=== PATIENT | male | born 1970 | race African-American/Black ===

== ENCOUNTER 2019-03-20 08:01 | Emergency (ER) | payer OTHER ==
--- NOTE | 2019-03-20 08:14 | PDOC ---
History of Present Illness - General Chief Complaint: Injury Stated Complaint: RT HAND INJURY Time Seen by Provider: 03/20/19 08:12 History Source: Patient Exam Limitations: No Limitations Past History - Travel Traveled outside of the country in the last 30 days: No Close contact w/someone who was outside of country & ill: No - Past Medical History Allergies/Adverse Reactions: Allergies Allergy/AdvReac Type Severity Reaction Status Date / Time No Known Allergies Allergy Verified 03/20/19 08:13 Home Medications: Ambulatory Orders No Home Medications 0 dose .ROUTE UTDICT 05/13/12 Cancer: No Cardiac Disorders: No CVA: No Diabetes: (borderline) HTN: No - Suicide/Smoking/Psychosocial Hx Smoking Status: No Smoking History: Former smoker Number of Cigarettes Smoked Daily: 2 Hx Alcohol Use: No Drug/Substance Use Hx: No Review of Systems - Review of Systems Able to Perform ROS?: Yes Comments:: 03/20/19 08:13 CONSTITUTIONAL: Absent: fever, chills, diaphoresis, generalized weakness, malaise, loss of appetite HEENT: Absent: rhinorrhea, nasal congestion, throat pain, throat swelling, difficulty swallowing, mouth swelling, ear pain, eye pain, visual Changes CARDIOVASCULAR: Absent: chest pain, loss of consciousness, palpitations, irregular heart rate, peripheral edema RESPIRATORY: Absent: cough, shortness of breath, dyspnea with exertion, orthopnea, wheezing, stridor, hemoptysis GASTROINTESTINAL: Absent: abdominal pain, abdominal distension, nausea, vomiting, diarrhea, constipation, melena, hematochezia GENITOURINARY: Absent: dysuria, frequency, urgency, hesitancy, hematuria, flank pain, genital pain MUSCULOSKELETAL: Present: R hand pain Absent: myalgia, joint swelling SKIN: Absent: rash, itching, pallor HEMATOLOGIC/IMMUNOLOGIC: Absent: easy bleeding, easy bruising, lymphadenopathy, frequent infections ENDOCRINE: Absent: unexplained weight gain, unexplained weight loss, heat intolerance, cold intolerance NEUROLOGIC: Absent: headache, focal weakness or paresthesias, dizziness, unsteady gait, seizure, mental status changes, bladder or bowel incontinence PSYCHIATRIC: Absent: anxiety, depression, suicidal or homicidal ideation, hallucinations. Is the patient limited Turkish proficient: No *Physical Exam - Physical Exam Comments: 03/20/19 08:13 GENERAL: The patient is awake, alert, and fully oriented, in no acute distress. HEAD: Normal with no signs of trauma. EYES: Pupils equal, round and reactive to light, extraocular movements intact, sclera anicteric, conjunctiva clear. EXTREMITIES: TTP of the R 3rd knuckle with associated swelling. ROM intact of the R hand. Normal range of motion, no edema. NEUROLOGICAL: Normal speech, normal gait. PSYCH: Normal mood, normal affect. SKIN: Warm, Dry, normal turgor, no rashes or lesions noted. Medical Decision Making - Medical Decision Making 03/20/19 08:32 THe patient is a 48 y/o M with no medical history who presents with 2 weeks of R hand painthe patient states that he was walking his dog when he slipped in the rain and landed on his right hand. He states that since then the right third knuckle has been swollen feels like it is chipped. denies numbness and tingling to the hand, weakness to the extremity, fevers and chills.the patient is right-hand dominant. A/P: Right hand pain On exam the right third knuckle is swollen. No tenderness to palpation. Patient able to fully flex and extend the finger. X-ray obtained of the right hand. No fracture of the third knuckle noted on wet read. We will discharge home with orthopedic follow-up if symptoms do not improve. I discussed the physical exam findings, ancillary test results and final diagnoses with the patient. I answered all of the patient's questions. The patient was satisfied with the care received and felt comfortable with the discharge plan and treatment plan. The Patient agrees to follow up with the primary care physician/specialist within 24-72 hours. Return precautions were given. *DC/Admit/Observation/Transfer Diagnosis at time of Disposition: Hand pain, right - Discharge Dispostion Disposition: HOME Condition at time of disposition: Stable Decision to Admit order: No - Referrals Referrals: Livia Sandoval MD [Primary Care Provider] - Vignesh San MD [Staff Physician] - - Patient Instructions Printed Discharge Instructions: DI for Hand Pain Additional Instructions: You were evaluated for your hand pain today. Your x-ray showed no broken bones. You may apply heating packs to the area to help with the swelling. If your symptoms do not improve within 2-3 days please follow-up with orthopedics. A referral has been provided. Return to the ER for any new or worsening symptoms. - Post Discharge Activity
[2019-03-20 08:25] VITALS: BP 137/96; PULSE 86; TEMP 98; BMI 27.6
== END 2019-03-20 08:44 | disposition home or self-care (01) ==
LOC: JER 08:01 → JERFT 08:01
DX: M79.641 Pain in right hand (principal); W01.0XXA Fall on same level from slipping, tripping and stumbling without subsequent striking against object, initial encounter; Y93.K1 Activity, walking an animal; Y92.480 Sidewalk as the place of occurrence of the external cause; Y99.8 Other external cause status
CPT/HCPCS: 73130-TC-RT-FY; 99281-25

== ENCOUNTER 2019-10-15 10:50 | Emergency (ER) | payer OTHER ==
[2019-10-15 10:57] VITALS: BP 154/107; PULSE 106; TEMP 98.4; BMI 25.4
--- NOTE | 2019-10-15 11:52 | PDOC ---
History of Present Illness - General Chief Complaint: Respiratory Stated Complaint: Cold Symptoms Time Seen by Provider: 10/15/19 11:22 History Source: Patient Exam Limitations: No Limitations Past History - Past Medical History Allergies/Adverse Reactions: Allergies Allergy/AdvReac Type Severity Reaction Status Date / Time No Known Allergies Allergy Verified 10/15/19 10:56 Home Medications: Ambulatory Orders No Home Medications 0 dose .ROUTE UTDICT 05/13/12 Benzonatate 200 mg PO TID #21 capsule 10/15/19 Cancer: No Cardiac Disorders: No CVA: No COPD: No Diabetes: (borderline) HTN: No - Immunization History Immunization Up to Date: (unknown) - Psycho Social/Smoking Cessation Hx Smoking Status: No Smoking History: Current every day smoker Number of Cigarettes Smoked Daily: 2 Information on smoking cessation initiated: No Hx Alcohol Use: No Drug/Substance Use Hx: Yes ([facility]) *Physical Exam - Vital Signs Last Vital Signs Temp Pulse Resp BP Pulse Ox 98.4 F 106 H 18 154/107 H 99 10/15/19 10:53 10/15/19 10:53 10/15/19 10:53 10/15/19 10:53 10/15/19 10:53 - Physical Exam General Appearance: No: Apparent Distress Respiratory/Chest: positive: Lungs Clear, Normal Breath Sounds. negative: Respiratory Distress Cardiovascular: positive: Regular Rhythm, Regular Rate, S1, S2. negative: Murmur Gastrointestinal/Abdominal: positive: Normal Bowel Sounds, Soft. negative: Tender, Distended, Guarding, Rebound Integumentary: positive: Normal Color Neurologic: positive: Alert ED Treatment Course - RADIOLOGY Radiology Studies Ordered: Category Date Time Status CHEST PA & LAT [RAD] Stat Radiology 10/15/19 11:31 Completed Medical Decision Making - Medical Decision Making 49 y/o M with no sig pmh, nonsmoker, presents with cough x 1 week, occasionally productive along with congestion, rhinorrhea, sneeezing. Denies fever, sob, cp, abd pain, n/v/d. CXR negative Patient otherwise appears well, is afebrile stable for dc 10/15/19 11:47 Discharge - Discharge Information Problems reviewed: Yes Clinical Impression/Diagnosis: Viral syndrome Condition: Stable Disposition: HOME - Admission No - Additional Discharge Information Prescriptions: Benzonatate 200 mg PO TID #21 capsule Prescription Drug Monitoring Program (I-STOP) results: I-STOP not reviewed - Follow up/Referral - Patient Discharge Instructions Patient Printed Discharge Instructions: DI for Viral Syndrome Additional Instructions: Thank you for choosing [facility]. It was a pleasure taking care of you. Use medication as prescribed Follow-up with your doctor in 2 days Return to the Emergency Department if your symptoms worsen or persist or have other concerning symptoms. - Post Discharge Activity
== END 2019-10-15 11:55 | disposition home or self-care (01) ==
LOC: JERFT 10:50
DX: B34.9 Viral infection, unspecified (principal)
CPT/HCPCS: 71046-TC-FY; 99281-25

== ENCOUNTER 2020-01-04 18:17 | Emergency (ER) | payer OTHER ==
[2020-01-04 18:22] VITALS: BMI 26.6
[2020-01-04 18:28] VITALS: BP 160/108; PULSE 83; TEMP 98.1
[2020-01-04] MEDS ORDERED: FAMOTIDINE 20 MG/50 ML IVPB 50 ML IVPB ONE (18:33)
[2020-01-04] MEDS ORDERED: ONDANSETRON 4 MG/2 ML VIAL IVPUSH ONE (18:33)
[2020-01-04] MEDS ORDERED: SODIUM CHLORIDE 1,000 ML IV ONE (18:33)
[2020-01-04] MEDS ORDERED: ONDANSETRON *ODT* 4 MG TABLET SL ONE (18:35)
[2020-01-04] MEDS ORDERED: FAMOTIDINE 20 MG TABLET PO ONE (18:35)
[2020-01-04] MEDS ORDERED: MAG HYDROX/AL HYDROX/SIMETH 30 ML UNIT-DOSE CUP PO ONE (18:35)
[2020-01-04] MEDS ORDERED: ONDANSETRON *ODT* 4 MG TABLET ONE (18:47)
[2020-01-04] MEDS ORDERED: MAG HYDROX/AL HYDROX/SIMETH 30 ML UNIT-DOSE CUP ONE (18:51)
[2020-01-04] MEDS ORDERED: FAMOTIDINE 20 MG TABLET ONE (18:51)
[2020-01-04] MEDS ORDERED: HYOSCYAMINE SULFATE 0.125 MG *ODT PO ONE (19:27)
[2020-01-04] MEDS ORDERED: HYOSCYAMINE SULFATE 0.125 MG *ODT ONE (19:30)
--- NOTE | 2020-01-04 20:08 | PDOC ---
Documentation entered by Alexsandra Fitzgerald SCRIBE, acting as scribe for J Carlos Dang MD. J Carlos Dang MD: This documentation has been prepared by the Lia winters Torie, SCRIBE, under my direction and personally reviewed by me in its entirety. I confirm that the documentation accurately reflects all work, treatment, procedures, and medical decision making performed by me. History of Present Illness - General Chief Complaint: Pain, Acute Stated Complaint: ABD PAIN, VOMITING Time Seen by Provider: 01/04/20 19:15 History Source: Patient Exam Limitations: No Limitations - History of Present Illness Initial Comments: 01/04/20 19:36 Patient is a 49 year old male with no significant medical history who presents to the ED today with stomach pain and vomiting NBNB that began last night. Patient reports some cramping. Patient denies diarrhea. General: No fevers or chills, no weakness, no weight loss HEENT: No change in vision. No sore throat,. No ear pain CardioVascular: No chest pain or shortness of breath Respiratory:No cough, or wheezing. Gastrointestinal: +Vomiting +nausea. No diarrhea or constipation, No rectal bleeding Genitourinary: No dysuria, hematuria, or frequency Musculoskeletal: No joint or muscle pain or swelling Neurologic: No headache, vertigo, dizziness or loss of consciousness Psychiatric: nor depression Skin: No rashes or easy bruising Endocrine: no increased thirst or abnormal weight change Allergic: no skin or latex allergy All other systems reviewed and normal Adult Exam: General: Well-nourished well-developed individual, no acute distress HEENT: Throat: Normal, tonsils normal, no erythema or exudate Neck: Supple, no meningeal signs, no lymphadenopathy Eyes::Pupils equal reactive and round, extraocular motion intact Chest: Nontender to palpation Cardiac: S1-S2 normal, regular rate and rhythm, no murmurs rubs or gallops Respiratory: Lungs clear to auscultation bilateral Abdomen: +increase bowel sound +mild tenderness epigastric. Soft, nondistended Extremities: Warm, dry, no cyanosis, clubbing, or edema Skin: No rashes Neuro: Alert and oriented x3, nonfocal exam, grossly intact, normal gait Psych: Normal mood and affect 01/04/20 20:04 Assessment and plan: This is a 49-year-old male who comes in complaining of some epigastric pain as well as vomiting x1 post eating funny smelling takeout food. Patient said he did not eat very much food and has had crampy abdominal pain with one episode of vomiting post eating it. Patient was given antiemetics and antacids here in the emergency room with improvement of his symptoms. Patient otherwise was afebrile had normal vitals and my exam revealed only some very mild epigastric tenderness with increased bowel sounds. Patient most likely has a gastroenteritis secondary to the food he ate however he was instructed that if pain becomes persistent worsens and his symptoms worsen or he develops a fever that he should return to the emergency room for further evaluation. Past History - Past Medical History Allergies/Adverse Reactions: Allergies Allergy/AdvReac Type Severity Reaction Status Date / Time No Known Allergies Allergy Verified 01/04/20 18:18 Home Medications: Ambulatory Orders No Home Medications 0 dose .ROUTE UTDICT 05/13/12 Hyoscyamine Odt [Levsin Odt -] 0.125 mg PO BID #7 tab.rapdis 01/04/20 Ondansetron [Zofran *Odt*] 4 mg SL TID #6 od.tablet 01/04/20 Cancer: No Cardiac Disorders: No CVA: No COPD: No Diabetes: (borderline) HTN: No - Immunization History Immunization Up to Date: (unknown) - Psycho Social/Smoking Cessation Hx Smoking Status: No Smoking History: Current some day smoker Number of Cigarettes Smoked Daily: 2 Information on smoking cessation initiated: Yes Hx Alcohol Use: No Drug/Substance Use Hx: Yes ([employer]) *Physical Exam - Vital Signs Last Vital Signs Temp Pulse Resp BP Pulse Ox 98.1 F 83 15 160/108 H 100 01/04/20 18:17 01/04/20 18:17 01/04/20 18:17 01/04/20 18:17 01/04/20 18:17 ED Treatment Course - Medications Given in the ED: ED Medications Discontinued Medications Generic Name Dose Route Start Last Admin Trade Name Freq PRN Reason Stop Dose Admin Al Hydroxide/Mg Hydroxide 30 ml 01/04/20 18:35 01/04/20 18:54 Mylanta Oral Suspension - PO 01/04/20 18:36 30 ml ONCE ONE Administration Famotidine 20 mg 01/04/20 18:35 01/04/20 18:53 Pepcid - PO 01/04/20 18:36 20 mg ONCE ONE Administration Sodium Chloride 1,000 mls @ 1,000 mls/hr 01/04/20 18:33 01/04/20 18:55 Normal Saline - IV 01/04/20 19:32 Not Given ONCE ONE Ondansetron HCl 4 mg 01/04/20 18:33 01/04/20 18:55 Zofran Injection IVPUSH 01/04/20 18:34 Not Given ONCE ONE Ondansetron HCl 4 mg 01/04/20 18:35 01/04/20 18:51 Zofran Odt - SL 01/04/20 18:36 4 mg ONCE ONE Administration Discharge - Discharge Information Problems reviewed: Yes Clinical Impression/Diagnosis: Nausea and vomiting in adult Condition: Stable Disposition: HOME - Admission No - Additional Discharge Information Prescriptions: Hyoscyamine Odt [Levsin Odt -] 0.125 mg PO BID #7 tab.rapdis Ondansetron [Zofran *Odt*] 4 mg SL TID #6 od.tablet - Follow up/Referral - Patient Discharge Instructions Patient Printed Discharge Instructions: Nausea and Vomiting-Adult Additional Instructions: Clear liquids only for the next 6 hours.. After that if you have had no further vomiting you may have bananas, rice, anderson lesauce, or toast. If no further vomiting for another 8 hours you may have regular food. If you vomit again then nothing to eat or drink for 2 hours. then start back with the clear liquids. Return to the emergency department immediately with ANY new, persistent or worsening symptoms. You MUST call and follow up with your doctor tomorrow if not better. Please make sure your doctor reviews the results of your emergency evaluation. Take Zofran 1 tablet as often as 3 times a day if needed for nausea or vomiting Take hyoscyamine 1 tablet as often as twice a day for stomach cramps Return to the emergency department if pain becomes constant and worsens and is associated with fevers or you have increased vomiting Continue any medications as previously prescribed by your physician. You should follow up with your primary doctor as soon as possible regarding today's emergency department visit. . Please make sure your doctor reviews the results of your emergency evaluation. Thank you for coming to the Emergency Department today for your care. It was a pleasure to see you today. Please note that your evaluation is INCOMPLETE until you follow-up with your doctor. - Post Discharge Activity Work/Back to School Note: Back to Work
== END 2020-01-04 19:38 | disposition home or self-care (01) ==
LOC: FER 18:17
DX: R11.2 Nausea with vomiting, unspecified (principal); F17.210 Nicotine dependence, cigarettes, uncomplicated; R73.03 Prediabetes
CPT/HCPCS: 99283-25; Q0162

== ENCOUNTER 2020-11-20 13:36 | Emergency (ER) | payer OTHER ==
[2020-11-20 13:41] VITALS: BP 146/98; PULSE 103; TEMP 98.4; BMI 27.6
== END 2020-11-20 15:15 | disposition home or self-care (01) ==
LOC: JCOVINFU 13:36
DX: R05 Cough (principal); R50.9 Fever, unspecified
CPT/HCPCS: 71046-TC-FY; 99283-25

== ENCOUNTER 2021-04-16 08:47 | Emergency (ER) | payer OTHER ==
[2021-04-16 09:18] VITALS: BP 142/90; PULSE 76; TEMP 98.3; BMI 28.2
[2021-04-16] MEDS ORDERED: KETOROLAC TROMETHAMINE 30 MG/1 ML VIAL IM ONE (09:36)
[2021-04-16] MEDS ORDERED: METHOCARBAMOL 500 MG TABLET PO ONE (09:36)
[2021-04-16] MEDS ORDERED: LIDOCAINE 5% TOPICAL PATCH TP ONE (09:37)
[2021-04-16] MEDS ORDERED: KETOROLAC TROMETHAMINE 30 MG/1 ML VIAL ONE (09:41)
[2021-04-16] MEDS ORDERED: LIDOCAINE 5% TOPICAL PATCH ONE (09:43)
[2021-04-16] MEDS ORDERED: LIDOCAINE PATCH REMOVAL MC ONE (22:00)
== END 2021-04-16 10:43 | disposition home or self-care (01) ==
LOC: JERFT 08:47
PROC: 3E0233Z Introduction of Anti-inflammatory into Muscle, Percutaneous Approach (ICD-10-PCS; principal; 2021-04-16)
DX: M54.41 Lumbago with sciatica, right side (principal)
CPT/HCPCS: 99284-25

== ENCOUNTER 2022-05-16 08:33 | Emergency (ER) | payer OTHER ==
[2022-05-16 08:59] VITALS: BP 189/85; PULSE 89; TEMP 98.3; BMI 28.8
[2022-05-16] MEDS ORDERED: IBUPROFEN 600 MG TABLET (FP) PO ONE ×2 (09:54→10:01)
== END 2022-05-16 10:02 | disposition home or self-care (01) ==
LOC: JERFT 08:33
DX: M25.511 Pain in right shoulder (principal)
CPT/HCPCS: 73030-TC-RT-FY; 99283-25

== ENCOUNTER 2022-05-23 08:36 | Emergency (ER) | payer OTHER ==
[2022-05-23 09:09] VITALS: BP 145/87; PULSE 87; RESP 18; TEMP 98.2; BMI 28.2
== END 2022-05-23 09:47 | disposition home or self-care (01) ==
LOC: JER 08:36 → JERFT 08:36
DX: R03.0 Elevated blood-pressure reading, without diagnosis of hypertension (principal)
CPT/HCPCS: 93005; 93010; 99283-25

== ENCOUNTER 2023-03-03 09:29 | Emergency (ER) | payer OTHER ==
[2023-03-03 09:40] VITALS: BP 164/91; PULSE 70; RESP 18; TEMP 98; BMI 27.9
[2023-03-03] MEDS ORDERED: ERYTHROMYCIN 0.5% OPHTHALMIC OINTMENT 3.5 GM TUBE OD STA (10:40)
[2023-03-03] MEDS ORDERED: ERYTHROMYCIN 0.5% OPHTHALMIC OINTMENT 3.5 GM TUBE ONE (10:42)
== END 2023-03-03 10:52 | disposition home or self-care (01) ==
LOC: JERFT 09:29
DX: H02.841 Edema of right upper eyelid (principal); H00.011 Hordeolum externum right upper eyelid
CPT/HCPCS: 99283-25

== ENCOUNTER 2023-04-21 11:54 | Emergency (ER) | payer OTHER ==
[2023-04-21 11:58] VITALS: BP 135/85; PULSE 86; RESP 18; TEMP 98.1; BMI 27.6
[2023-04-21] MEDS ORDERED: KETOROLAC TROMETHAMINE 30 MG/1 ML VIAL IM ONE (13:21)
[2023-04-21] MEDS ORDERED: KETOROLAC TROMETHAMINE 30 MG/1 ML VIAL ONE (13:24)
== END 2023-04-21 13:30 | disposition home or self-care (01) ==
LOC: JER 11:54
PROC: 3E0233Z Introduction of Anti-inflammatory into Muscle, Percutaneous Approach (ICD-10-PCS; principal; 2023-04-21)
DX: M25.552 Pain in left hip (principal)
CPT/HCPCS: 73502-TC-LT-FY; 73521-TC-FY; 99284-25

== ENCOUNTER 2023-10-25 08:50 | Observation (INO) | payer OTHER ==
[2023-10-25 10:08] LABS: EOS % 2.1 % (0-4.5); HEMATOCRIT 48.2 % (35.4-49); HEMOGLOBIN 15.7 GM/dL (11.7-16.9); LYMPH % 38.9 % (8-40); MCH 27.3 pg (25.7-33.7); MCHC 32.6 g/dl (32.0-35.9); MEAN CELL VOLUME 83.7 fl (80-96); MEAN PLT VOLUME 8.9 fl (7.5-11.1); PLATELET COUNT 222 10^3/uL (134-434); RBC 5.76 M/mm3 (4.00-5.60); RDW 14.3 % (11.9-15.9); WHITE BLOOD COUNT 5.4 K/mm3 (4.0-10.0)
[2023-10-25] MEDS ORDERED: SODIUM CHLORIDE 1,000 ML IV STA (10:08)
[2023-10-25 10:09] LABS: INR 1.06 (0.83-1.09); PROTHROMBIN TIME (PATIENT) 12.3 SEC (9.7-13.0)
[2023-10-25 10:30] LABS: POTASSIUM 4.1 mmol/L (3.5-5.1)
[2023-10-25 10:31] LABS: CALCIUM 9.4 mg/dL (8.5-10.1)
[2023-10-25 10:32] LABS: ALBUMIN 3.8 g/dl (3.4-5.0); BLOOD UREA NITROGEN 14.7 mg/dL (7-18)
[2023-10-25 10:35] LABS: CREATININE 1.2 mg/dL (0.55-1.3)
[2023-10-25 10:36] LABS: BILIRUBIN,TOTAL 0.8 mg/dL (0.2-1)
[2023-10-25 10:37] LABS: TOT PROT 7.7 g/dl (6.4-8.2)
[2023-10-25] MEDS ORDERED: amLODIPine BESYLATE 10 MG TABLET (FP) ONE (12:31)
[2023-10-25] MEDS: amLODIPine BESYLATE 10 MG TABLET (FP) PO SCH (12:33)
[2023-10-25] MEDS ORDERED: ACETAMINOPHEN 500 MG TABLET (FP) PO PRN (17:20)
[2023-10-25] MEDS ORDERED: ACETAMINOPHEN 500 MG TABLET (FP) ONE (17:47)
[2023-10-25 23:05] VITALS: RESP 18; BMI 27.6
[2023-10-25] MEDS: HEPARIN NA (PORCINE) 5,000 UNITS/ML 1ML VIAL SQ SCH (23:19)
[2023-10-26 07:49] LABS: BASO % 0.6 % (0-2.0); EOS % 2.6 % (0-4.5); HEMATOCRIT 48.6 % (35.4-49); HEMOGLOBIN 15.6 GM/dL (11.7-16.9); LYMPH % 44.9 % (8-40); MCHC 32.2 g/dl (32.0-35.9); MEAN CELL VOLUME 83.9 fl (80-96); MEAN PLT VOLUME 9.2 fl (7.5-11.1); MONO % 6.8 % (3.8-10.2); NEUT % 45.1 % (42.8-82.8); PLATELET COUNT 231 10^3/uL (134-434); RBC 5.79 M/mm3 (4.00-5.60); RDW 14.3 % (11.9-15.9); WHITE BLOOD COUNT 4.7 K/mm3 (4.0-10.0)
[2023-10-26 08:27] LABS: CALCIUM 9.5 mg/dL (8.5-10.1)
[2023-10-26 08:28] LABS: BLOOD UREA NITROGEN 11.2 mg/dL (7-18)
[2023-10-26] MEDS: amLODIPine BESYLATE 10 MG TABLET (FP) PO SCH (09:57)
[2023-10-26] MEDS: HEPARIN NA (PORCINE) 5,000 UNITS/ML 1ML VIAL SQ SCH (09:57)
[2023-10-26 18:13] VITALS: BP 143/90; PULSE 74; TEMP 97.9
== END 2023-10-26 18:16 | disposition home or self-care (01) ==
LOC: JER 08:50 → JERBED 11:34 → J4S 22:51
PROVIDERS: ADMIT Internal Medicine; ATTEND Internal Medicine
PROC: 3E023GC Introduction of Other Therapeutic Substance into Muscle, Percutaneous Approach (ICD-10-PCS; principal; 2023-10-25)
PROC: 3E0337Z Introduction of Electrolytic and Water Balance Substance into Peripheral Vein, Percutaneous Approach (ICD-10-PCS; 2023-10-25)
DX: I10 Essential (primary) hypertension (principal); R07.9 Chest pain, unspecified; R42 Dizziness and giddiness; Z86.69 Personal history of other diseases of the nervous system and sense organs; M62.81 Muscle weakness (generalized); F17.200 Nicotine dependence, unspecified, uncomplicated
CPT/HCPCS: 0241U-QW; 36415; 70450-TC; 71046-TC-FY; 80048; 80053; 80061; 82962; 84443; 84484; 85025; 85610; 85730; 93005; 93010; 93306-TC; 93880-TC; 96372; 99285-25; G0378; J1644